=== PATIENT | female | born 1945 | race Caucasian/White ===

== ENCOUNTER → 2018-11-06 | Outpatient (CLI) | payer MEDICARE, SELFPAY ==
[2018-11-04 14:43] VITALS: BMI 35.3
--- NOTE | 2018-11-06 06:24 | ECHOD_ITS ---
Reason For Study: Pre Op Procedure This was a 2D Doppler, Color Flow transthoracic echocardiogram. Exam performed in department. Left Ventricle Normal LV size. Left ventricular systolic function is normal. The estimated ejection fraction is 60 %. Stage 1 diastolic dysfunction. No regional wall motion abnormalities noted. Right Ventricle Normal RV size. Normal systolic function. Atria The left atrium is mildly enlarged. Normal right atrium. Mitral Valve Normal mitral valve. Tricuspid Valve Normal tricuspid valve. Mild to moderate (1-2+) tricuspid valve insufficiency. Pulmonary artery systolic pressure is 54 mmHg. Moderate pulmonary hypertension. Aortic Valve Normal aortic valve. Trisinus/trileaflet aortic valve. Pulmonic Valve Normal pulmonic valve. Great Vessels Normal aortic root. The pulmonary artery is normal size. Normal inferior vena cava. Pericardium/Pleural No pericardial effusion. MMode/2D Measurements & Calculations LVIDd: 4.6 cm IVSd: 1.8 cm Ao root diam: 3.4 cm LVIDs: 2.9 cm LVPWd: 1.2 cm LA dimension: 4.3 cm RVDd: 3.5 cm FS: 36.3 % LAV(MOD-bp): 76.4 ml LA A4 area: 23.0 cm2 RA A4 area: 15.8 cm2 LAV(MOD-bp) Indexed: 38.2 ml/m2 LAV(MOD-sp2): 78.3 ml LAV(MOD-sp4): 74.9 ml Time Measurements MV dec time: 0.23 sec Doppler Measurements & Calculations MV E max mars: 94.9 cm/sec Lat Peak E' Mars: 5.7 cm/sec Med Peak E' Mars: 7.0 cm/sec MV A max mars: 117.0 cm/sec E/E' lat: 16.7 E/E' med: 13.6 MV E/A: 0.81 MV V2 max: 131.9 cm/sec MV P1/2t max mars: 114.6 cm/sec Ao V2 max: 176.0 cm/sec MV max P.0 mmHg MV P1/2t: 69.7 msec Ao max P.4 mmHg MV V2 mean: 79.0 cm/sec MV dec slope: 481.3 cm/sec2 Ao V2 mean: 101.2 cm/sec MV mean P.9 mmHg MVA(P1/2t): 3.2 cm2 Ao mean P.0 mmHg MV V2 VTI: 27.2 cm Ao V2 VTI: 30.6 cm LV V1 max: 121.0 cm/sec MR max mars: 563.0 cm/sec PA V2 max: 101.1 cm/sec LV V1 max P.9 mmHg MR max P.8 mmHg LV V1 mean P.6 mmHg LV V1 mean: 72.8 cm/sec LV V1 VTI: 25.3 cm TR max mars: 346.4 cm/sec TR max P.0 mmHg Interpretation Summary Normal LV size. Left ventricular systolic function is normal. The estimated ejection fraction is 60 %. Stage 1 diastolic dysfunction. The left atrium is mildly enlarged. Pulmonary artery systolic pressure is 54 mmHg. Moderate pulmonary hypertension. Ordering Physician: Ras Bravo Referring Physician: Xander Mcgarry Performed By: Brian Zayas RCS
--- NOTE | 2018-11-06 12:47 | STRESSREP_ITS ---
Stress Test Report Excise myocardial perfusion stress test. 73-year-old lady with a history of abdominal aortic aneurysm for preop for evaluation. Stress protocol: Resting EKG demonstrates normal sinus rhythm with a rate of 91 bpm normal intervals are noted resting blood pressures 160/82 mmHg. The patient exercised according to regular Lit protocol for total duration of 4 minutes and 11 seconds the maximum heart rate attained was 145 bpm which was 106% of maximum predicted heart rate the maximum workload was 6 metabolic equivalents. At rest there were no ST or T wave changes noted suggest ischemia peak exercise upsloping ST changes only were noted with no meet the criteria for ischemia. No clinical angina was noted. The resting blood pressures 160/82 with a peak blood pressure of 200/88. The test was terminated due to leg fatigue. Myocardial perfusion protocol. 11.8 mCi of technetium 99m sestamibi was injected at rest. The patient exe rcised according to regular Lit protocol for 4 minutes 11 seconds at peak exercise 34.3 mCi of technetium 99m sestamibi was injected stress images were obtained stress and rest images were reconstructed and compared in the short axis vertical long horizontal long axis. Gated images were also obtained Perfusion SPECT analysis: Review of the stress images demonstrate normal uptake of tracer noted in all areas of the myocardium. The resting images similarly demonstrate normal uptake of tracer noted in all areas of the myocardium. No areas of reversibility are noted suggest ischemia or infarct. Gated SPECT analysis: The gated ejection fraction is noted to be 72%. Conclusion: Normal exercise myocardial perfusion stress test at a moderate workload. Preserved ejection fraction.
== END | disposition home or self-care (01) ==
LOC: CVS 06:24
PROVIDERS: Family Provider Preventive Medicine Occupational Medicine; PCP Preventive Medicine Occupational Medicine; Referring Provider Internal Medicine Cardiovascular Disease; Visit Provider Internal Medicine Cardiovascular Disease
DX: Z01.810 Encounter for preprocedural cardiovascular examination (principal); R07.9 Chest pain, unspecified; R94.31 Abnormal electrocardiogram [ECG] [EKG]
CPT/HCPCS: 78452; 93017; 93306; A9500; A4216

== ENCOUNTER → 2019-07-08 12:49 | Outpatient (CLI) | payer MEDICARE, SELFPAY ==
[2018-11-04 14:43] VITALS: BMI 35.3
[2019-07-05 11:43] LABS: BUN 21 mg/dL (7-18); Creatinine, Serum 1.06 mg/dL (0.55-1.02); EST Glomerular Filtration Rate 54 mL/min (>60); Est Glom Filt Rate - Afr Amer 65 mL/min (>60)
--- NOTE | 2019-07-08 13:00 | ART_ITS ---
Reason For Study: PVD Procedure A bilateral lower extremity continuous wave Doppler with analog waveform analysis and ankle brachial indexes. Left Segmental Pressures Left brachial= 211mmHg. Left posterior tibial artery = 242mmHg. Left dorsalis pedis artery = 223mmHg. The left dorsalis pedis waveforms are triphasic. The left posterior tibial artery waveforms are triphasic. Right Segmental Pressures Right brachial= 213mmHg. Right posterior tibial artery = 246mmHg. Right dorsalis pedis artery = 223mmHg. The right dorsalis pedis waveforms are triphasic. The right posterior tibial artery waveforms are triphasic. Indices The right ankle brachial index by the dorsalis pedis is 1.05. The right ankle brachial index by the posterior tibial artery is 1.15. The left ankle brachial index by the dorsalis pedis is 1.05. The left ankle brachial index by the posterior tibial artery is 1.14. Interpretation Summary 1. Bilateral no evidence occlussive disease at rest with MILENA 1.15 and 1.14 and triphasic flow. Ordering Physician: Forrest Napier Performed By: ARLIN DUBOIS Mervat
--- NOTE | 2019-07-08 13:25 | CT_ITS ---
CTA of the abdomen and pelvis with IV contrast INDICATION: Aortic aneurysm. TECHNIQUE: CTA of the abdomen and pelvis was performed in the axial plane utilizing intravenous enhancement followed by sagittal and coronal reconstructions. Radiologic technique was optimized to limit patient radiation dose. DLP was 1164.69 FINDINGS: Liver is fatty infiltrated without mass or bile duct dilatation. There are multiple calcified stones in the gallbladder without evidence for acute inflammation. Spleen is enlarged without focal mass. Pancreas is normal size and homogeneous attenuation. Adrenals are normal. No evidence for renal obstruction or ureteral calculus. There is a simple cyst in the right kidney and a smaller simple cyst in the left kidney. The stomach is normal. No evidence for small bowel obstruction or free air. There are postsurgical changes status post resection of the descending colon. There are diverticular changes in the distal descending and sigmoid colon without evidence for acute diverticulitis. Uterus not visualized consistent with hysterectomy. There is a fat-containing inguinal hernia in the right groin Bladder is within normal limits Lumbar spine demonstrates moderate spondylosis Large infrarenal aortic aneurysm is noted measuring approximately 5.15 x 5.75 cm in maximal dimension approximately 9 cm in length. There is a mid to distal aortic stent and bilateral common iliac stents. No evidence for periaortic leak or dissection. CT/CT ANGIO ABD&PEL W/O&W/DYE IMPRESSION: Infrarenal aortic aneurysm extending to the bifurcation with maximum dimension of possibly 5.15 x 5.75 cm approximately 9 cm in length status post aortoiliac stenting. Cholelithiasis without evidence for acute cholecystitis. Nonspecific fatty infiltration of the liver and splenomegaly Small bilateral renal cysts Electronically Signed: Stan Hilton MD at 17:15 EST , Service support ,
== END ==
PROVIDERS: PCP Preventive Medicine Occupational Medicine; Referring Provider Surgery Vascular Surgery; Visit Provider Surgery Vascular Surgery
DX: I71.4 Abdominal aortic aneurysm, without rupture (principal); Z87.891 Personal history of nicotine dependence; Z85.038 Personal history of other malignant neoplasm of large intestine; I73.9 Peripheral vascular disease, unspecified; Z95.828 Presence of other vascular implants and grafts
CPT/HCPCS: 36415; 74174; 82565; 84520; 93922; Q9967

== ENCOUNTER → 2020-09-15 08:44 | Outpatient (CLI) | payer MEDICARE, SELFPAY ==
[2018-11-04 14:43] VITALS: BMI 35.3
--- NOTE | 2020-09-15 08:47 | AAVD_ITS ---
Reason For Study: AAA Aorta Measurements Aorta Doppler Measurements Proximal aorta measures2.33 x 2.30cm. in cross- Peak systolic flow velocities within the proximal sectional axis. aorta measure 45.7 cm/sec. Proximal aorta measures2.36cm. in longitudinal axis. Mid Aorta residual sac, 5.00 x 5.29 x 5.06 cm. Mid Limb 1, 1.08 x 1.03 x 1.24 cm, 40.2 cm/sec. Mid Limb 2, 1.14 x 1.02 x 1.05 cm, 56.7 cm/sec. Distal Aorta residual sac, 5.06 x 5.57 x 5.03 cm. Distal Limb 1, 1.16 x 1.11 x 1.13 cm, 68.8 cm/sec. Distal Limb 2, 1.11 x 1.02 x 1.01 cm, 67.7 cm/sec. No endo leak noted. Left Iliac Artery Left iliac artery measures 1.14 x 1.14 cm. in the cross-sectional axis. Left iliac artery measures 1.12 cm. in the longitudinal axis. Peak systolic velocity in the left iliac artery measures 103.4 cm/sec. Right Iliac Artery Right iliac artery measures 1.53 x 1.51 cm. in the cross-sectional axis. Right iliac artery measures 1.61 cm. in the longitudinal axis. Peak systolic velocity in the right iliac artery measures 85.3 cm/sec. Procedure Aorta IVC Iliac vasculature or bypass grafts 89666. Technically difficult study. Exam performed in department. VL/Abd Aortic/IVC Duplex scan Interpretation Summary Patent stent graft noted. Residual sac measures 5 x 5.5 cm. No endoleak noted. Ordering Physician: Forrest Napier Referring Physician: Xander Mcgarry Performed By: Ashli Peters RVT
--- NOTE | 2020-09-15 08:47 | ART_ITS ---
Reason For Study: Atherosclerosis Procedure A bilateral lower extremity continuous wave Doppler with analog waveform analysis and ankle brachial indexes. Left Segmental Pressures Left brachial= 174mmHg. Left posterior tibial artery = 232mmHg. Left dorsalis pedis artery = 225mmHg. Left digit = 209 mmHg. The left dorsalis pedis waveforms are triphasic. The left posterior tibial artery waveforms are triphasic. Right Segmental Pressures Right brachial= 176mmHg. Right posterior tibial artery = 215mmHg. Right dorsalis pedis artery = 206mmHg. Right digit = 171 mmHg. The right dorsalis pedis waveforms are triphasic. The right posterior tibial artery waveforms are triphasic. Indices The right ankle brachial index by the dorsalis pedis is 1.17. The right ankle brachial index by the posterior tibial artery is 1.22. The right digital-brachial index is 0.97. The left ankle brachial index by the dorsalis pedis is 1.32. The left digital-brachial index is 1.19. VL/Ankle Brachial Index Interpretation Summary Bilateral no significant occlusive disease at rest with bilateral triphasic deloris w and an MILENA 1.22 on the right and 1.32 on the left. Normal digit brachial index of 0.97 and 1.19. Ordering Physician: Forrest Napier Referring Physician: Xander Mcgarry Performed By: Ashli Peters RVT
== END ==
LOC: CVS 08:46
PROVIDERS: PCP Preventive Medicine Occupational Medicine; Referring Provider Surgery Vascular Surgery; Visit Provider Surgery Vascular Surgery
DX: I71.4 Abdominal aortic aneurysm, without rupture (principal); I70.213 Atherosclerosis of native arteries of extremities with intermittent claudication, bilateral legs; Z87.891 Personal history of nicotine dependence; Z85.038 Personal history of other malignant neoplasm of large intestine
CPT/HCPCS: 93922; 93978